=== PATIENT | female | born 1965 | race Caucasian/White ===

== ENCOUNTER → 2020-10-10 17:48 | Outpatient (CLI) | payer OTHER, SELFPAY | PROVIDERS: PCP Obstetrics & Gynecology Gynecology; Referring Provider Obstetrics & Gynecology Gynecology; Visit Provider Obstetrics & Gynecology Gynecology | DX: Z20.828 Contact with and (suspected) exposure to other viral communicable diseases (principal); R05 Cough; R50.9 Fever, unspecified | CPT/HCPCS: 87635; C9803; U0003 ==